=== PATIENT | female | born 1975 | race Two or more races ===

== ENCOUNTER 2016-12-02 18:55 | Emergency (ER) | payer OTHER ==
[~2016-12-02] VITALS: Ht 157.5 cm; Wt 63.5 kg
[2016-12-02] MEDS ORDERED: Oxycodone/Acetaminophen 5-325 ORAL ONE (19:30)
[2016-12-02] MEDS ORDERED: IBUPROFEN600 MG ORAL (21:04)
[2016-12-02 21:07] VITALS: BP 139/89
[2016-12-02 21:09] VITALS: BP 139/89
--- NOTE | 2016-12-03 11:16 | Diagnostic Imaging Report ---
Indication: PAIN Technique: 2 views of the tibia and fibula Comparison: none Findings: Impression:
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
--- NOTE | 2016-12-15 14:10 | Diagnostic Imaging Report ---
Indication: PAIN Technique: 3 views of the left shoulder Comparison: None Findings: No acute fractures or dislocations. Joint spaces are preserved. Impression: Negative
== END 2016-12-02 21:09 | disposition home or self-care (01) ==
LOC: EDBD 18:55 → EMR 19:35
DX: M25.512 Pain in left shoulder (principal); M79.604 Pain in right leg; M79.605 Pain in left leg; M25.561 Pain in right knee; V89.2XXA Person injured in unspecified motor-vehicle accident, traffic, initial encounter; V43.52XA Car driver injured in collision with other type car in traffic accident, initial encounter; Y92.414 Local residential or business street as the place of occurrence of the external cause
CPT/HCPCS: 99283